=== PATIENT | male | born 1955 | race Caucasian/White ===

== ENCOUNTER 2017-05-25 13:23 | Outpatient (CLI) | payer MEDICARE, OTHER ==
[~2017-05-25] VITALS: Ht 182.9 cm; Wt 89.4 kg
[~2017-05-25 13:23] MED LIST: CIPR500T78 PO; GABA300C PO; LORA0.5T PO; ONDA-42 SL; OXYC-465 PO; TEMA30CA PO; TMSL.4C PO; TORADOL 10 MG PO
[2017-05-25 13:41] VITALS: BP 153/85
[2017-05-25] MEDS ORDERED: methylPREDNISolone 80 MG/ML (DEPO MEDROL) VIAL ONE (13:47)
[2017-05-25 13:58] VITALS: BP 156/94
== END 2017-05-25 13:58 | disposition home or self-care (01) ==
LOC: CARD 13:23
PROVIDERS: ATTEND Pain Medicine Interventional Pain Medicine
DX: M54.16 Radiculopathy, lumbar region (principal); M51.36 Other intervertebral disc degeneration, lumbar region
CPT/HCPCS: 62323

== ENCOUNTER → 2018-10-23 | Outpatient (CLI) | payer MEDICARE, OTHER ==
[2018-10-23] VITALS (20 sets, daily range): BP systolic 105–138; BP diastolic 64–84
[~2018-10-23] VITALS: Ht 182.9 cm; Wt 90.7 kg
[~2018-10-23] MED LIST changes: +ALFU10TA PO; +AMLO10TA7 PO; +ASPI-983 PO; +ATROPINE INJECTION 1 MG/10 ML SYR (ABBOTT) ONE; +DIPH25CA79 PO; +GABA-488 PO; +HYDR-3820 PO; +NS IV 1000 ML 1,000 ML IV SCH; +NS IV 1000 ML 1,000 ML ONE; +PROP15DR OU; +PSEU120T17 PO; +VARD20TA30 PO
== END ==
LOC: CARD 08:05
PROVIDERS: ATTEND Nurse Practitioner Family
DX: R00.1 Bradycardia, unspecified (principal); R42 Dizziness and giddiness; R55 Syncope and collapse; Z79.82 Long term (current) use of aspirin; Z79.899 Other long term (current) drug therapy
CPT/HCPCS: 93660

== ENCOUNTER → 2021-01-07 | Outpatient (CLI) | payer MEDICARE, OTHER ==
[~2021-01-07] MED LIST changes: +ACHYD1T PO; +AMLO-251 PO; -AMLO10TA7 PO; +ASPI-1238 PO; -ASPI-983 PO; -ATROPINE INJECTION 1 MG/10 ML SYR (ABBOTT) ONE; -HYDR-3820 PO; -NS IV 1000 ML 1,000 ML IV SCH; -NS IV 1000 ML 1,000 ML ONE
== END ==
LOC: CARD 11:50
PROVIDERS: ATTEND Internal Medicine Cardiovascular Disease
DX: I35.1 Nonrheumatic aortic (valve) insufficiency (principal)
CPT/HCPCS: 93306

== ENCOUNTER → 2021-01-08 | Outpatient (CLI) | payer MEDICARE, OTHER ==
[~2021-01-08] VITALS: Ht 182 cm; Wt 81.0 kg
[~2021-01-08] MED LIST changes: +CATHETER FLUSH 10 ML SYR IV PRN; +REGADENOSON 0.4 MG/5 ML SYR (LEXISCAN) IV ONE
[2021-01-08 08:58] VITALS: BP 122/54
--- NOTE | 2021-01-11 13:18 | STRESS TEST ---
DATE OF SERVICE: 01/08/2021 RESTING AND POST REGADENOSON TECHNETIUM-99M TETROFOSMIN SPECT CT IMAGING ORDERING PHYSICIAN: Dr. Nix. PRIMARY PHYSICIAN: [facility]. CLINICAL DIAGNOSIS: Shortness of breath. Baseline images were carried out after injection of 10.77 mCi of technetium-99m Tetrofosmin. This was followed by 0.4 mg regadenoson and 30.9 mCi of technetium-99m Tetrofosmin for stress imaging. The electrocardiogram showed sinus rhythm at baseline. It did not change significantly with the regadenoson infusion. The patient tolerated the procedure well. Review of images at rest and following stress does not indicate any significant perfusion defects consistent with myocardial ischemia or infarction. Gated images show normal global left ventricular systolic function with normal regional wall motion. Left ventricular ejection fraction is calculated to be 57%. CONCLUSIONS: 1. No evidence of significant myocardial ischemia or infarction on this study. 2. Normal regional wall motion. 3. Normal global left ventricular systolic function with a calculated ejection fraction of 57%. Job ID: [id number] DocumentID: [id number] Dictated Date: 01/11/2021 09:34:17 Sort Line Date: 01/11/2021 13:17:06 Dictated By: RADHA NIX MD, MA, FACP, FACC,
== END ==
LOC: CARD 08:15
PROVIDERS: ATTEND Internal Medicine Cardiovascular Disease
DX: R06.09 Other forms of dyspnea (principal)
CPT/HCPCS: 78452; 93017; A9502

== ENCOUNTER → 2021-03-01 | Outpatient (CLI) | payer MEDICARE, OTHER ==
[~2021-03-01] MED LIST changes: -CATHETER FLUSH 10 ML SYR IV PRN; -REGADENOSON 0.4 MG/5 ML SYR (LEXISCAN) IV ONE
--- NOTE | 2021-03-01 14:32 | Diagnostic Imaging Report ---
PROCEDURE: MR imaging cervical spine without contrast. TECHNIQUE: Multiplanar, multisequence MR imaging of the cervical spine was performed without contrast. INDICATION: Chronic neck and low back pain. COMPARISON: none. FINDINGS: No acute fracture or dislocation is seen in the cervical spine. There is straightening of the cervical spine. The vertebral body heights and disc spaces are well maintained. Modic type II endplate degenerative changes are present at the C7-T1 level. No focal osseous lesions. The craniocervical junction is maintained. The cervical spinal cord demonstrates normal intrinsic signal. No epidural collections are seen. The included brainstem and posterior fossa have normal appearance. Multilevel degenerative changes are seen in the cervical spine with posterior disc bulges and uncovertebral arthropathy. C2-C3: No significant spinal canal or foraminal stenosis. C3-C4: Posterior disc bulge, uncovertebral arthropathy, and buckling of the ligamentum flavum results in moderate spinal canal stenosis and moderate bilateral foraminal stenosis. C4-C5: Posterior disc bulge and uncovertebral arthropathy results in mild to moderate spinal canal narrowing and moderate right and tayj-lt-wzzjnwla left foraminal stenosis. C5-C6: Posterior disc bulge and uncovertebral arthropathy results in moderate spinal canal stenosis and moderate bilateral foraminal stenosis. C6-C7: Posterior disc bulge and uncovertebral arthropathy results in moderate spinal canal stenosis and moderate bilateral foraminal stenosis. C7-T1: Uncovertebral arthropathy results in no significant spinal canal narrowing and moderate to severe bilateral foraminal stenosis. The soft tissues of neck are unremarkable. Impression: 1. No acute fracture or dislocation of the cervical spine. 2. Multilevel degenerative changes in the cervical spine, greatest at C3-C4, C5-C6, and C6-C7. 3. Modic type II endplate degenerative changes at the C7-T1 level. Dictated by: Dictated on workstation # [id number]
--- NOTE | 2021-03-01 14:48 | Diagnostic Imaging Report ---
PROCEDURE: MRI lumbar spine. TECHNIQUE: Multiplanar, multisequence MRI of the lumbar spine was performed without contrast. INDICATION: Chronic neck and lower back pain. COMPARISON: None FINDINGS: For the purposes of this exam, last well-formed disc space is noted at the L5-S1 level. Evaluation static alignment shows mild grade 1 retrolisthesis at the L2-L3 through L5-S1 level. There is also mild dextroscoliotic deformity epicentered at L2-L3. There is no evidence of jumped facets. Vertebral body heights are maintained. There is no acute fracture. Evaluation marrow signal demonstrates multilevel Modic change, greatest involving the L3 and L4 vertebral bodies. There is also multilevel intervertebral disc height loss with multilevel anterior posterior disc osteophyte complex formations. Visualized portions of distal cord are unremarkable. Conus terminates approximately the T12-L1 level. No abnormal intrathecal filling defects are seen. Pre and paravertebral soft tissue structures are unremarkable. Axial images demonstrate the following: T12-L1: There is no large disc bulge or focal contusion. There is no significant spinal canal or neuroforaminal stenosis. L1-L2: Mild broad-based posterior disc bulge is identified, eccentric to the left. There is also bilateral facet arthropathy and mild ligamentum laxity. As a result, there is mild narrowing of the spinal canal and left neuroforamen. L2-L3: There is broad-based posterior disc osteophyte complex formation, bilateral ligamentum laxity and facet arthropathy. As a result, there is moderate stenosis spinal canal and left neuroforamen. There is also mild stenosis of the right. L3-L4: There is broad-based posterior disc bulge and bilateral ligamentum laxity and facet arthropathy. As result, there is moderate stenosis of spinal canal and left neuroforamen. There is also mild narrowing on the right. L4-L5: There is broad-based posterior disc bulge and bilateral ligamentum laxity and facet arthropathy. As result, there is moderate to severe spinal canal stenosis as well as moderate to severe stenosis of the right neuroforamen and moderate stenosis on the left. L5-S1: There is broad-based posterior disc osteophyte complex formation and bilateral facet arthropathy. As result, there is minimal narrowing spinal canal and moderate to severe stenosis of the right neuroforamen and moderate stenosis on the left. IMPRESSION: 1. Moderate multilevel degenerative changes lumbar spine as described above. 2. No acute fracture or dislocation. Dictated by: Dictated on workstation # [id number]
== END ==
LOC: RAD 12:30
PROVIDERS: ATTEND Nurse Practitioner
DX: M47.812 Spondylosis without myelopathy or radiculopathy, cervical region (principal); M47.816 Spondylosis without myelopathy or radiculopathy, lumbar region; M47.817 Spondylosis without myelopathy or radiculopathy, lumbosacral region; M51.26 Other intervertebral disc displacement, lumbar region; M48.061 Spinal stenosis, lumbar region without neurogenic claudication; M48.02 Spinal stenosis, cervical region; M25.78 Osteophyte, vertebrae
CPT/HCPCS: 72141; 72148

== ENCOUNTER → 2021-05-31 | Outpatient (CLI) | payer MEDICARE, OTHER ==
--- NOTE | 2021-05-31 11:51 | Diagnostic Imaging Report ---
PROCEDURE: CT abdomen and pelvis without contrast. TECHNIQUE: Multiple contiguous axial images were obtained through the abdomen and pelvis without the use of intravenous contrast. Auto Exposure Controls were utilized during the CT exam to meet ALARA standards for radiation dose reduction. INDICATION: History of prostate cancer. COMPARISON: 05/08/2013 FINDINGS: Included portions of lung bases are clear. CT ABDOMEN: Punctate nonobstructive right renal calculus is noted. No renal calculi are seen on the left. No calculi are seen within either ureter. Additionally, there is no hydroureteronephrosis or other evidence of obstruction. No renal masses are seen on this noncontrast exam. The adrenal glands, spleen, pancreas, and liver have an unremarkable noncontrast CT appearance. Small bowel loops are nondistended. Normal appendix is identified. Moderate amount of air and stool seen scattered throughout the colon. No abnormal mesenteric or retroperitoneal adenopathy is seen. There is no loculated fluid collection, free fluid or free air. Mild calcified aortic atherosclerosis is present. Osseous structures show age-related degenerative changes. No suspicious lytic or blastic bony lesions are seen. CT PELVIS: Urinary bladder is unopacified. No calculi are seen within urinary bladder. There is no loculated fluid collection, free fluid or free air. No abnormal adenopathy is seen. Osseous structures show several sclerotic foci within the bilateral iliac bones. This is stable compared to prior exam. IMPRESSION: 1. Several sclerotic foci are identified within the bilateral iliac bones. This, however is stable compared to prior exam. Correlation with serum PSA values is recommended. 2. No new suspicious lytic or blastic lesion. 3. Moderate colonic air and stool. Please correlate for constipation. 4. Punctate nonobstructive right renal calculus. Dictated by: Dictated on workstation # [id number]
--- NOTE | 2021-05-31 16:35 | Diagnostic Imaging Report ---
EXAM: Nuclear Medicine whole body bone scan. DATE: May 31, 2021. INDICATION: 66-year-old male, new diagnosis of prostate cancer. Evaluation for bone metastasis. COMPARISON: CT abdomen/pelvis May 31, 2021. MRI lumbar spine March 01, 2021. MRI cervical spine March 01, 2021. FINDINGS: There is radiotracer activity in the urinary bladder which does limit evaluation of portions of the pelvis. There is radiotracer uptake at the level of the lumbar spine which likely relates to scoliosis and degenerative related changes. There is no radiotracer activity at site of sclerotic foci in the iliac bones bilaterally. These sclerotic lesions are present dating back to prior CT abdomen/pelvis exam on November 04, 2009 and are unchanged since that time. There is radiotracer uptake at the level of the lower cervical spine which is likely degenerative related. IMPRESSION: No Nuclear Medicine evidence of an osteoblastic bone metastasis. Dictated by: Dictated on workstation # [id number]
== END ==
LOC: CARD 11:00
PROVIDERS: ATTEND Urology
DX: N20.0 Calculus of kidney (principal); C61 Malignant neoplasm of prostate
CPT/HCPCS: 74176; 78306; A9503

== ENCOUNTER 2021-06-14 10:16 | Outpatient (RCR) | payer MEDICARE, OTHER | END 2021-06-28 | disposition home or self-care (01) | LOC: ONC 10:16 | PROVIDERS: ATTEND Radiology Radiation Oncology | DX: C61 Malignant neoplasm of prostate (principal) | CPT/HCPCS: 84153; G0463; 36415; 99204 ==

== ENCOUNTER 2021-07-05 05:36 | Outpatient (CLI) | payer MEDICARE, OTHER ==
[~2021-07-05] VITALS: Ht 182.8 cm; Wt 86.6 kg
[2021-07-05] MEDS ORDERED: DIPH25CA79 PO (15:09)
[2021-07-05] MEDS ORDERED: CETI10TA17 PO (15:09)
[2021-07-05] MEDS ORDERED: FLUT9.9S NS (15:09)
[2021-07-05] MEDS ORDERED: TRAZ150T72 PO (15:09)
== END 2021-07-05 15:40 | disposition home or self-care (01) ==
LOC: PREOP 05:36
PROVIDERS: ATTEND Surgery
DX: Z01.818 Encounter for other preprocedural examination (principal)

== ENCOUNTER 2021-07-13 11:09 | Day surgery (SDC) | payer MEDICARE, OTHER ==
[~2021-07-13] VITALS: Ht 183 cm; Wt 86.6 kg
[~2021-07-13 11:09] MED LIST changes: +CETI10TA17 PO; +FLUT9.9S NS; +TRAZ150T72 PO
[2021-07-13] MEDS ORDERED: LACTATED RINGERS 1,000 ML IV STA (11:11)
[2021-07-13] MEDS ORDERED: LACTATED RINGERS 1,000 ML IV ONE (11:12)
[2021-07-13 11:20] VITALS: BP 127/62
[2021-07-13] MEDS ORDERED: PROPOFOL INJECTION 50 ML IV ONE (12:00)
--- NOTE | 2021-07-13 12:06 | Progress Note-Pre Operative ---
Pre-Operative Progress Note H&P Reviewed The H&P was reviewed, patient examined and no changes noted. Date Seen by Provider: Jul 13, 2021 Time Seen by Provider: 12:05 Date H&P Reviewed: Jul 13, 2021 Time H&P Reviewed: 12:05 Pre-Operative Diagnosis: screening colonoscopy AVERY BECK DO Jul 13, 2021 12:05
[2021-07-13 12:30] VITALS: BP 126/66
--- NOTE | 2021-07-13 12:33 | Progress Note-Post Operative ---
Post-Operative Progess Note Surgeon (s)/Supply Chain Intern (s) Surgeon AVERY BECK DO Supply Chain Intern: na Pre-Operative Diagnosis screening colonoscopy Post-Operative Diagnosis sigmoid polyp Procedure & Operative Findings Date of Procedure 07/13/21 Procedure Performed/Findings colonoscopy c hot bx polypectomy Anesthesia Type per [facility] Estimated Blood Loss Estimated blood loss (mL): none Specimens/Packing Specimens Removed sigmoid polyp AVERY BECK DO Jul 13, 2021 12:33
[2021-07-13 12:35] VITALS: BP 131/65
--- NOTE | 2021-07-13 12:43 | Discharge Inst-Simple/Standard ---
Discharge Inst-Standard Patient Instructions/Follow Up Plan of Care/Instructions/FU: 2 weeks James Activity as Tolerated: Yes Discharge Diet: Regular Diet AVERY BECK DO Jul 13, 2021 12:42
[2021-07-13 13:00] VITALS: BP 130/70
[2021-07-13 13:05] VITALS: BP 130/70
--- NOTE | 2021-07-13 14:39 | OPERATIVE REPORT ---
DATE OF SERVICE: 07/13/2021 PREOPERATIVE DIAGNOSIS: Screening colonoscopy. POSTOPERATIVE DIAGNOSIS: Sigmoid colon polyp. PROCEDURE: Colonoscopy with hot biopsy polypectomy x1. SURGEON: Avery Ramirez DO ANESTHESIA: per MDA. ESTIMATED BLOOD LOSS: None. COMPLICATIONS: None. INDICATIONS: The patient is a 66-year-old male needing screening colonoscopy. He understands risks and benefits of procedure and wished to proceed. Consent was signed in the chart. DESCRIPTION OF PROCEDURE: The patient was taken to the endoscopy suite, placed in left lateral recumbent position. Timeout was performed. Digital rectal exam was performed. No palpable polyps, masses or ulcerations. Scope was inserted in the rectum, advanced all the way to the cecum with minimal difficulty. Prep was adequate. Scope was slowly retracted back. No polyps, masses or ulcerations within the cecum, ascending, transverse, descending colon. In the sigmoid colon, a small polyp was present, which hot biopsy polypectomy was performed. Scope was continuously retracted back into the rectum where it was also retroflexed noting no other pathology. Scope was returned to its normal position, slowly withdrawn until completely removed. The patient tolerated procedure well without any complications, taken to recovery room in stable condition. RECOMMENDATIONS: The patient will need repeat colonoscopy in 5 years. Any issues before that be seen at that time. CC: Kat Ashley - requested, unable to deliver. Job ID: [id number] DocumentID: [id number] Dictated Date: 07/13/2021 12:48:31 Button Station Worker Date: 07/13/2021 14:39:30 Dictated By: AVERY RAMIREZ DO
--- NOTE | 2021-07-13 15:06 | Anesthesia-General Post-Op ---
MAC Patient Condition Mental Status/LOC: Same as Preop Cardiovascular: Satisfactory Nausea/Vomiting: Absent Respiratory: Satisfactory Pain: Controlled Complications: Absent Post Op Complications Complications None Follow Up Care/Instructions Patient Instructions None needed. Anesthesiology Discharge Order Discharge Order Patient wa doing well after the procedure, no complaints, stable vital signs, no apparent adverse anesthesia problems. NOAM FIGUEROA DO Jul 13, 2021 15:06
== END 2021-07-13 13:05 | disposition home or self-care (01) ==
LOC: ENDO 11:09
PROVIDERS: ATTEND Surgery
DX: Z12.11 Encounter for screening for malignant neoplasm of colon (principal); D12.5 Benign neoplasm of sigmoid colon

== ENCOUNTER → 2021-12-31 | Outpatient (CLI) | payer MEDICARE, OTHER ==
[~2021-12-31] MED LIST changes: +GADOTERATE 0.5 MMOL/ML (CLARISCAN) 20 ML VIAL IV ONE
--- NOTE | 2021-12-31 10:26 | Diagnostic Imaging Report ---
PROCEDURE: MR imaging of the brain with and without contrast. TECHNIQUE: Multiplanar, multisequence MR imaging of the brain was performed with and without contrast. INDICATION: Right ear pain. Headaches. Right-sided head pain. COMPARISON: None. FINDINGS: Prqa-aq-ivrkzbds generalized parenchymal volume loss. Moderate-to- advanced nonspecific T2 hyperintensities in the supratentorial, infratentorial and pontine white matter. No restricted water diffusion. No hemosiderin deposition or evidence of intracranial hemorrhage. Normal morphology including the major midline structures, sella, posterior fossa and cerebellar pontine angle. Dedicated sequence through the level of the internal auditory canals demonstrates normal morphology with no suspicious mass. A left vertebral artery flow void is absent. No hydrocephalus or extra-axial fluid collections. Mild mucosal thickening in the maxillary and ethmoid sinuses. The mastoids are clear. Normal bone marrow signal. IMPRESSION: 1. No acute intracranial MRI findings. No evidence of acute infarction or hemorrhage. 2. Nonspecific T2 hyperintensities in the supratentorial, pontine and infratentorial white matter without abnormal intracranial enhancement. Findings likely represent chronic small vessel ischemic change. 3. The left vertebral artery flow void is absent. This may be congenitally absent but is indeterminate. This could be better evaluated with dedicated CTA of the head and neck. 4. Mild mucosal thickening in the maxillary and ethmoid sinuses. Dictated by: Dictated on workstation # [id number]
== END ==
LOC: RAD 13:15
PROVIDERS: ATTEND Otolaryngology Otolaryngology/Facial Plastic Surgery
DX: J34.89 Other specified disorders of nose and nasal sinuses (principal); H92.01 Otalgia, right ear
CPT/HCPCS: 70553

== ENCOUNTER → 2022-01-12 | Outpatient (CLI) | payer MEDICARE, OTHER ==
[~2022-01-12] MED LIST changes: +CATHETER FLUSH 10 ML SYR IV PRN; -GADOTERATE 0.5 MMOL/ML (CLARISCAN) 20 ML VIAL IV ONE; +HOLD METFORMIN - RECEIVED CONTRAST 20 ML VIAL IV SCH; +IOHEXOL 350 MG/ML 100 ML (OMNIPAQUE 350) VIAL IV ONE; +NS 100 ML (IVPB) BAG IV ONE
[2022-01-12 09:21] LABS: CREATININE SERUM 1.24 MG/DL (0.60-1.30)
--- NOTE | 2022-01-12 10:18 | Diagnostic Imaging Report ---
PROCEDURE: CT angiography of the head and CT angiography of the neck with and without contrast. TECHNIQUE: Contiguous noncontrast images were obtained from the skull base through the vertex. After intravenous contrast administration, helical CT angiography of the neck was performed. Source data was reformatted into 3D MIP projections. Delayed post contrast acquisition was also obtained. Auto Exposure Controls were utilized during the CT exam to meet ALARA standards for radiation dose reduction. 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 There are patchy areas of low density most pronounced in the subcortical aspect of left cerebral white matter. There is no geographic low density to indicate territorial infarct. No hemorrhage is identified. The visualized paranasal sinuses are clear. There is no evidence of skull base osseous aberrance. IMPRESSION: No acute abnormality CTA HEAD: Anterior, middle and posterior cerebral arteries are patent without evidence of stenosis or occlusion. There is no aneurysm or vascular malformation and no filling defect is identified. Basilar artery appears to be normal with bilateral posterior cerebral arteries visualized. P1 segments are relatively small. 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 Otherwise, there is no CTA evidence of cerebral arterial abnormality. CTA NECK: There is a normal three-vessel branching pattern arising from the aortic arch. Common carotid arteries are unremarkable. Carotid bifurcations are patent with mild atherosclerotic plaque within the left carotid bulb. Minimal atherosclerosis involves the right carotid bulb. Internal carotid arteries are patent throughout the neck. There is patency of left vertebral artery, however, left vertebral artery is small and appears to terminate at the level of left PICA. Right vertebral artery is patent through the neck and supplies the basilar artery. There is moderate atherosclerotic plaque at the proximal right vertebral artery resulting in 50% narrowing. There is diffuse cervical degenerative disc and facet disease. 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 There are foci of atherosclerotic plaque including probable 50% stenosis at the proximal right vertebral artery with mild atherosclerotic disease in the carotid bulbs. Cerebral arteries in the head are unremarkable apart from hypoplasia of P1 segments. Dictated by: Dictated on workstation # [id number]
== END ==
LOC: RAD 09:45
PROVIDERS: ATTEND Otolaryngology Otolaryngology/Facial Plastic Surgery
DX: Q27.8 Other specified congenital malformations of peripheral vascular system (principal); H92.01 Otalgia, right ear; R51.9 Headache, unspecified
CPT/HCPCS: 36415; 70496; 70498; 82565; 84520

== ENCOUNTER → 2022-04-14 | Outpatient (CLI) | payer MEDICARE, OTHER ==
[~2022-04-14] MED LIST changes: -CATHETER FLUSH 10 ML SYR IV PRN; -HOLD METFORMIN - RECEIVED CONTRAST 20 ML VIAL IV SCH; -IOHEXOL 350 MG/ML 100 ML (OMNIPAQUE 350) VIAL IV ONE; -NS 100 ML (IVPB) BAG IV ONE; +RT-ALBUTEROL SULF 2.5 MG/3 ML PRE-MIX VIAL INH ONE
== END ==
LOC: RT 13:01
PROVIDERS: ATTEND Nurse Practitioner Family
DX: J30.2 Other seasonal allergic rhinitis (principal); R05.3 Chronic cough
CPT/HCPCS: 94060; 94726; 94729

== ENCOUNTER 2022-11-13 14:18 | Emergency (ER) | payer MEDICARE, OTHER ==
[~2022-11-13] VITALS: Ht 182 cm; Wt 83.0 kg
[~2022-11-13 14:18] MED LIST changes: -RT-ALBUTEROL SULF 2.5 MG/3 ML PRE-MIX VIAL INH ONE
[2022-11-13] MEDS ORDERED: morphine INJ 10 MG/ML 1ML (SYR OR VIAL) IVP STA (14:39)
--- NOTE | 2022-11-13 14:42 | ED General ---
General Chief Complaint: Back Problems Stated Complaint: POSSIBLE KIDNEY STONE Nursing Triage Note: RIGHT LOWER BACK PAIN STARTING YESTERDAY. HX OF KIDNEY STONES. Source of Information: Patient Exam Limitations: No Limitations History of Present Illness Date Seen by Provider: Nov 13, 2022 Time Seen by Provider: 14:31 Initial Comments 67-year-old male presents the emergency department today for right flank, lower back pain. He believes he may have a kidney stone as he has had several in the past, most recently 2 years ago. Denies any fevers or chills. No nausea or vomiting. He has pain in his right flank that is dull throbbing with episodes of sharp stabbing pain. It is constant since last night. He has decreased urinary flow but no hematuria or dysuria. Does have a history of some HELIO and follows with urology and nephrology at [facility]. States his creatinine has been stable for the last year. Normal bowel movements. No testicular pain or symptoms. All other systems reviewed and negative except documented per HPI. Voice recognition software was used to help create this chart Allergies and Home Medications Allergies Coded Allergies: No Known Drug Allergies (Unverified , 05/08/13) Patient Home Medication List Home Medication List Reviewed: Yes Alfuzosin HCl (Uroxatral) 10 Mg Tab.sr.24h, 10 MG PO HS, (Reported) Entered as Reported by: MITCHELL PRASAD on 12/24/17 1126 Cetirizine HCl (Cetirizine HCl) 10 Mg Tablet, 10 MG PO DAILY, (Reported) Entered as Reported by: IRAJ BECKER on 07/05/21 1509 Diphenhydramine HCl (Benadryl) 25 Mg Capsule, 25 MG PO HS, (Reported) Entered as Reported by: IRAJ BECKER on 07/05/21 1509 Fluticasone Propionate (Flonase Allergy Relief) 9.9 Ml [place].susp, 1 SPRAY NS DAILY, (Reported) Entered as Reported by: IRAJ BECKER on 07/05/21 1509 Trazodone HCl (Trazodone HCl) 150 Mg Tablet, 150 MG PO HS, (Reported) Entered as Reported by: IRAJ BECKER on 07/05/21 1509 Vardenafil HCl (Levitra) 20 Mg Tablet, 10-20 MG PO DAILY PRN for ED, (Reported) Entered as Reported by: MITCHELL PRASAD on 12/24/17 1126 Review of Systems Review of Systems Constitutional: see HPI Past Xkacnsc-[id number]-Xbsajy Hx Patient Social History Tobacco Use?: No Substance use?: No Alcohol Use?: Yes Alcohol Frequency: Once in a while Immunizations Up To Date Tetanus Booster (TDap): Unknown PED Vaccines UTD: No First/Initial COVID19 Vaccinat: 07/02/2020 Second COVID19 Vaccination Benjamin: 07/30/2020 Third COVID19 Vaccination Date: NO Seasonal Allergies Seasonal Allergies: Yes Past Medical History Surgeries: Yes (KIDNEY STONE REMOVED) Respiratory: No Cardiac: Yes Syncope Neurological: No Reproductive Disorders: No Sexually Transmitted Disease: No HIV/AIDS: No Genitourinary: Yes Kidney Stones Gastrointestinal: No Musculoskeletal: Yes Arthritis, Chronic Back Pain Endocrine: No HEENT: No Cancer: No Psychosocial: Yes Anxiety Integumentary: No Blood Disorders: No Adverse Reaction/Blood Tranf: No Family Medical History No Pertinent Family Hx Physical Exam Vital Signs Vital Signs - First Documented 11/13/22 14:25 Temp 36.0 Pulse 49 Resp 16 B/P (MAP) 153/78 (103) Pulse Ox 95 O2 Delivery Room Air Capillary Refill : Less Than 3 Seconds Height, Weight, BMI Height: 6'0.00" Weight: 200lbs. 0.0oz. [id number]; 25.00 BMI Method:Stated General Appearance: No Apparent Distress, WD/WN Eyes: Bilateral Eye Normal Inspection, Bilateral Eye PERRL, Bilateral Eye EOMI HEENT: Normal ENT Inspection, Pharynx Normal Neck: Full Range of Motion, Supple Respiratory: Chest Non Tender, Lungs Clear, Normal Breath Sounds, No Accessory Muscle Use, No Respiratory Distress Cardiovascular: Regular Rate, Rhythm, No Murmur, Normal Peripheral Pulses Gastrointestinal: Normal Bowel Sounds, No Organomegaly, No Pulsatile Mass, Non Tender, Soft Back: CVA Tenderness (R) Extremity: Normal Capillary Refill, Normal Inspection Neurologic/Psychiatric: Alert, Oriented x3, Normal Mood/Affect Skin: Normal Color, Warm/Dry Progress/Results/Core Measures Suspected Sepsis SIRS Temperature: Pulse: 49 Respiratory Rate: 16 Laboratory Tests 11/13/22 14:44: White Blood Count 4.3 Blood Pressure 153 /78 Mean: 103 Laboratory Tests 11/13/22 14:44: Creatinine 1.06, Platelet Count 204 Results/Orders Lab Results Laboratory Tests Test 11/13/22 14:44 11/13/22 15:38 Range/Units White Blood Count 4.3 4.3-11.0 10^3/uL Red Blood Count 4.11 L 4.30-5.52 10^6/uL Hemoglobin 13.5 13.3-17.7 g/dL Hematocrit 40 40-54 % Mean Corpuscular Volume 97 80-99 fL Mean Corpuscular Hemoglobin 33 25-34 pg Mean Corpuscular Hemoglobin Concent 34 32-36 g/dL Red Cell Distribution Width 13.1 10.0-14.5 % Platelet Count 204 130-400 10^3/uL Mean Platelet Volume 9.2 9.0-12.2 fL Immature Granulocyte % (Auto) 0 % Neutrophils (%) (Auto) 67 42-75 % Lymphocytes (%) (Auto) 22 12-44 % Monocytes (%) (Auto) 8 0-12 % Eosinophils (%) (Auto) 3 0-10 % Basophils (%) (Auto) 0 0-10 % Neutrophils # (Auto) 2.9 1.8-7.8 X 10^3 Lymphocytes # (Auto) 1.0 1.0-4.0 X 10^3 Monocytes # (Auto) 0.3 0.0-1.0 X 10^3 Eosinophils # (Auto) 0.1 0.0-0.3 10^3/uL Basophils # (Auto) 0.0 0.0-0.1 10^3/uL Immature Granulocyte # (Auto) 0.0 0.0-0.1 10^3/uL Sodium Level 137 135-145 MMOL/L Potassium Level 4.1 3.6-5.0 MMOL/L Chloride Level 108 H 98-107 MMOL/L Carbon Dioxide Level 21 21-32 MMOL/L Anion Gap 8 5-14 MMOL/L Creatinine 1.06 0.60-1.30 MG/DL Estimat Glomerular Filtration Rate 76 Glucose Level 122 H 70-105 MG/DL Calcium Level 8.9 8.5-10.1 MG/DL Urine Color YELLOW Urine Clarity CLEAR Urine pH 6.0 5-9 Urine Specific [place] 1.025 H 1.016-1.022 Urine Protein NEGATIVE NEGATIVE Urine Glucose (UA) NEGATIVE NEGATIVE Urine Ketones NEGATIVE NEGATIVE Urine Nitrite NEGATIVE NEGATIVE Urine Bilirubin NEGATIVE NEGATIVE Urine Urobilinogen 0.2 < = 1.0 MG/DL Urine Leukocyte Esterase NEGATIVE NEGATIVE Urine RBC (Auto) NEGATIVE NEGATIVE Urine RBC NONE /HPF Urine WBC NONE /HPF Urine Squamous Epithelial Cells RARE /HPF Urine Crystals NONE /LPF Urine Bacteria NEGATIVE /HPF Urine Casts NONE /LPF Urine Mucus NEGATIVE /LPF Urine Culture Indicated NO My Orders Orders - SALVADOR FRASER DO Basic Metabolic Panel (11/13/22 14:38) Ua Culture If Indicated (11/13/22 14:38) Cbc With Automated Diff (11/13/22 14:38) Ct Abdomen/Pelvis Wo (11/13/22 14:38) Morphine Injection (Morphine Injection (11/13/22 14:39) Ns Iv 1000 Ml (Sodium Chloride 0.9%) (11/13/22 14:45) Iv/Invasive Line Insertion .IV INSERT (11/13/22 14:39) Medications Given in ED Current Medications Medications Dose Ordered Sig/Awa Route Start Time Stop Time Status Last Admin Dose Admin Sodium Chloride 1,000 ml @ 999 mls/hr ONCE ONCE IV 11/13/22 14:45 11/13/22 15:45 DC 11/13/22 14:55 999 MLS/HR Vital Signs/I&O 11/13/22 14:25 Temp 36.0 Pulse 49 Resp 16 B/P (MAP) 153/78 (103) Pulse Ox 95 O2 Delivery Room Air Capillary Refill : Less Than 3 Seconds Blood Pressure Mean: 103 Departure Impression Primary Impression: Right low back pain Qualified Codes: M54.50 - Low back pain, unspecified Disposition: 01 HOME, SELF-CARE Condition: Stable Departure-Patient Inst. Referrals: [facility]/ (PCP) Primary Care Physician FRANKY HOWARD APRN (Family) Primary Care Physician Patient Instructions: Acute Pain, Adult (DC) Add. Discharge Instructions: Your CT scan is normal. The appendix appears normal and there is no evidence for kidney stone. Your urine does not show any evidence for infection. Your labs are reassuring as well. I think this is likely musculoskeletal in nature. Use ibuprofen and Tylenol as needed. Return to the emergency department for any severe concerns. Follow-up with your primary doctor should your symptoms persist. All discharge instructions reviewed with patient and/or family. Voiced understanding. SALVADOR FRASER DO Nov 13, 2022 14:41
[2022-11-13] MEDS ORDERED: NS IV 1000 ML 1,000 ML IV ONE (14:45)
[2022-11-13 14:54] LABS: BASOPHILS % (AUTO) 0 % (0-10); EOSINOPHILS # (AUTO) 0.1 10^3/uL (0.0-0.3); EOSINOPHILS % (AUTO) 3 % (0-10); HEMATOCRIT 40 % (40-54); HEMOGLOBIN 13.5 g/dL (13.3-17.7); LYMPHOCYTES % (AUTO) 22 % (12-44); MEAN CORPUSCULAR HEMOGLOBIN 33 pg (25-34); MEAN CORPUSCULAR HGB CONC 34 g/dL (32-36); MEAN CORPUSCULAR VOLUME 97 fL (80-99); MEAN PLATELET VOLUME 9.2 fL (9.0-12.2); MONOCYTES # (AUTO) 0.3 X 10^3 (0.0-1.0); MONOCYTES % (AUTO) 8 % (0-12); NEUTROPHILS # (AUTO) 2.9 X 10^3 (1.8-7.8); NEUTROPHILS % (AUTO) 67 % (42-75); PLATELET COUNT 204 10^3/uL (130-400); WHITE BLOOD COUNT 4.3 10^3/uL (4.3-11.0)
--- NOTE | 2022-11-13 15:12 | Diagnostic Imaging Report ---
PROCEDURE: CT abdomen and pelvis without contrast. TECHNIQUE: Multiple contiguous axial images were obtained through the abdomen and pelvis without the use of intravenous contrast. Auto Exposure Controls were utilized during the CT exam to meet ALARA standards for radiation dose reduction. INDICATION: Right lower back pain starting yesterday. COMPARISON: CT of the abdomen and pelvis on 05/31/2021 FINDINGS: Included views of the lung bases demonstrate no significant abnormality. The liver, spleen, adrenal glands, and pancreas are normal. The gallbladder is normal. The kidneys demonstrate no nephrolithiasis or hydronephrosis. The previously seen right kidney stone has resolved. No stones within the ureters or urinary bladder. The urinary bladder demonstrates diffuse wall thickening. No abdominal pelvic lymphadenopathy. No free air, loculated fluid collections, or ascites. The bowel is nondilated. The appendix is normal. No inflammatory changes around the bowel. The soft tissues are normal. The osseous structures demonstrate no lytic or sclerotic bone lesions. Advanced multilevel degenerative changes of the lumbar spine. IMPRESSION: Circumferential bladder wall thickening may be seen with cystitis. Recommend correlation with urinalysis. No nephrolithiasis or hydronephrosis. Normal appendix. No bowel obstruction. Dictated by: Dictated on workstation # [id number]
[2022-11-13 15:44] LABS: BILIRUBIN,URINE NEGATIVE (NEGATIVE); CLARITY,URINE CLEAR; COLOR,URINE YELLOW; GLUCOSE, URINE (UA) NEGATIVE (NEGATIVE); KETONES,URINE NEGATIVE (NEGATIVE); LEUKOCYTE ESTERASE ,URINE NEGATIVE (NEGATIVE); NITRITE,URINE NEGATIVE (NEGATIVE); PROTEIN,URINE NEGATIVE (NEGATIVE)
[2022-11-13 15:46] LABS: POTASSIUM 4.1 MMOL/L (3.6-5.0)
[2022-11-13 15:47] LABS: CALCIUM 8.9 MG/DL (8.5-10.1)
[2022-11-13 15:50] LABS: BACTERIA,URINE NEGATIVE /HPF; SQUAMOUS EPITHELIAL CELL,UR RARE /HPF
[2022-11-13 15:52] LABS: CREATININE SERUM 1.06 MG/DL (0.60-1.30)
[2022-11-13 15:58] VITALS: BP 162/80
== END 2022-11-13 15:58 | disposition home or self-care (01) ==
LOC: EDUNIT# 14:18 → ER 14:20
DX: M54.50 Low back pain, unspecified (principal)
CPT/HCPCS: 36415; 74176; 80048; 81000; 85025

== ENCOUNTER → 2022-12-01 | Outpatient (CLI) | payer MEDICARE, OTHER ==
[~2022-12-01] MED LIST changes: +ACHD5005 PO
--- NOTE | 2022-12-01 12:46 | Diagnostic Imaging Report ---
EXAMINATION: Magnetic resonance imaging of the left knee without intravenous contrast DATE: December 01, 2022. COMPARISON: Left knee radiographs November 20, 2022. INDICATION: 59-year-old male, left knee pain. Hyperextension injury. TECHNIQUE: Multiplanar, multisequence non contrast enhanced MR imaging was accomplished. FINDINGS: MENISCI: There is a complex oblique tear involving the body, posterior horn, and posterior root attachment of the medial meniscus. There is no medial meniscal extrusion. There is an oblique tear of the anterior horn, body, posterior horn of the lateral meniscus. LIGAMENTS AND TENDONS: There is a complete tear of the anterior cruciate ligament. Posterior cruciate ligament is intact. There is a complete or near-complete tear of the superficial component of the medial collateral ligament complex. The meniscofemoral ligament is not well seen and may be torn. The meniscotibial ligament is intact. The iliotibial band and mid third lateral capsular ligament are intact. There is a complete tear of the lateral ulnar collateral ligament. The biceps, femoris and conjoined tendons are intact. The quadriceps tendon and patella ligament are intact. JOINT: There is a full-thickness cartilage defect of the lateral femoral condyle measuring 4 x 5 mm in size best demonstrated on coronal STIR sequence image 22. The additional articular cartilage is without identified defect. There is a [id number] sized knee joint effusion. There is no identified intra-articular body. BONE: There is slight impaction of the posterior aspect of the lateral tibial plateau with underlying marrow edema. There is a bone contusion of the anterior aspect of the medial tibial plateau. There is also a bone contusion underlying the lateral femoral notch. BURSAE AND SOFT TISSUES: There is no sizable Parham's cyst. There is prominent nonspecific soft tissue edema adjacent to the joint. There is edema in the popliteus muscle and soleus muscle likely reflecting low-grade muscle strains. There is generalized subcutaneous edema. There is fairly focal fluid measuring approximately 4.1 x 2.2 x 3.3 cm in size just posterior to the upper soleus muscle which may relate to developing hematoma. This is also extending superiorly in the region of the complete tear of the lateral collateral ligament. IMPRESSION: 1. Complete tear of anterior cruciate ligament. Complete or near-complete tear of the superficial component of the medial collateral ligament complex with potential additional tear of the meniscal femoral ligament. Complete tear of the lateral collateral ligament which may be associated with the posterior lateral corner type injury. 2. Extensive tears of the medial and lateral meniscus as above. 3. Bone contusions of the medial and lateral tibial plateaus and lateral femoral condyle in the region of the lateral femoral notch. 4. 4 x 5 mm full-thickness cartilage defect of the lateral femoral condyle without additional identified cartilage defect. Small to moderate sized knee joint effusion. 5. Probable developing hematoma laterally in the region of the tear of the lateral collateral ligament and posterior to the soleus muscle. 6. Low-grade muscle strains of popliteus and soleus. Dictated by: Dictated on workstation # [id number]
== END ==
LOC: RAD 08:13
DX: S83.512A Sprain of anterior cruciate ligament of left knee, initial encounter (principal); S83.412A Sprain of medial collateral ligament of left knee, initial encounter; S83.242A Other tear of medial meniscus, current injury, left knee, initial encounter; S83.282A Other tear of lateral meniscus, current injury, left knee, initial encounter; S86.112A Strain of other muscle(s) and tendon(s) of posterior muscle group at lower leg level, left leg, initial encounter; X58.XXXA Exposure to other specified factors, initial encounter
CPT/HCPCS: 73721